=== PATIENT | female | born 1990 | race Caucasian/White ===

== ENCOUNTER 2018-09-16 08:30 | Emergency (ER) | payer MEDICAID ==
[~2018-09-16] VITALS: Ht 157.5 cm; Wt 45.0 kg
[~2018-09-16 08:30] MED LIST: CLIN-96 PO; CLIN150C8 PO; HYDR-4353 PO; NO HOME MEDS
--- NOTE | 2018-09-16 08:45 | NUR ---
Pt with history of substance use. Last used heroin roughly one hour [employer]. Methamphetamine used yesterday.
[2018-09-16] MEDS ORDERED: HYDR-3965 PO (08:51)
[2018-09-16] MEDS ORDERED: METR500T PO (08:51)
[2018-09-16] MEDS ORDERED: AMOX500C2 PO (08:51)
[2018-09-16] MEDS ORDERED: ONDA4TAB6 PO (08:51)
[2018-09-16] MEDS ORDERED: METH4TAB81 PO (08:54)
[2018-09-16 09:54] VITALS: BP 115/65
== END 2018-09-16 09:56 | disposition home or self-care (01) ==
LOC: ER 08:31
DX: K04.7 Periapical abscess without sinus (principal); K02.9 Dental caries, unspecified; F12.90 Cannabis use, unspecified, uncomplicated; F11.90 Opioid use, unspecified, uncomplicated; Z56.0 Unemployment, unspecified; Z88.2 Allergy status to sulfonamides
CPT/HCPCS: 99284